=== PATIENT | male | born 1955 | race African-American/Black ===

== ENCOUNTER 2017-11-14 16:59 | Emergency (ER) | payer BC | END 2017-11-14 19:55 | disposition home or self-care (01) | LOC: ERS 16:59 | DX: M54.12 Radiculopathy, cervical region (principal); I11.0 Hypertensive heart disease with heart failure; I50.9 Heart failure, unspecified; E11.9 Type 2 diabetes mellitus without complications; E03.9 Hypothyroidism, unspecified; E78.5 Hyperlipidemia, unspecified; F17.210 Nicotine dependence, cigarettes, uncomplicated; Z86.73 Personal history of transient ischemic attack (TIA), and cerebral infarction without residual deficits; Z79.84 Long term (current) use of oral hypoglycemic drugs; Z79.82 Long term (current) use of aspirin; Z79.899 Other long term (current) drug therapy | CPT/HCPCS: 99283 ==

== ENCOUNTER 2019-08-17 16:48 | Observation (INO) | payer BC, SELFPAY ==
--- NOTE | 2019-08-17 17:12 | RAD ---
EXAM: CHEST ONE VIEW HISTORY: Chest pain. COMPARISON: 02/12/2017 FINDINGS: The cardiac silhouette and pulmonary vasculature is within normal limits. The lungs are clear. The os seous structures are intact. No interval change from prior study. IMPRESSION: No acute cardiopulmonary process.
[2019-08-17 17:28] LABS: #Eosinphils 0.2 thou/uL (0.0-0.7); #Lymphocytes 2.8 thou/uL (1.20-3.40); #Monocytes 0.5 thou/uL (0.11-0.59); #Neutrophils 4.3 thou/uL (1.40-6.50); %Basophils 0.6 % (0.0-1.0); %Eosinophils 2.2 % (0.0-10.0); %Lymphocytes 35.9 % (21.0-51.0); %Monocytes 6.7 % (0.0-10.0); %Neutrophils 54.7 % (42.0-75.0); Hemoglobin 15.9 g/dL (14.0-18.0); Mean Corpuscular HGB CONC 32.8 g/dL (32.0-36.0); Mean Corpuscular Hemoglobin 28.6 pg (27.0-31.0); Mean Corpuscular Volume 87.2 fL (78.0-98.0); Mean Platelet Volume 7.3 fL (7.4-10.4); Platelet Count 255 thou/uL (130-400); RBC Distribution Width 12.3 % (11.5-14.5); Red Blood Cell (RBC) Count 5.56 mill/uL (4.70-6.10); White Blood Cell (WBC) Count 7.8 thou/uL (4.8-10.8)
[2019-08-17 17:58] LABS: ALT (SGPT) 43 U/L (8-55); AST (SGOT) 28 U/L (5-34); Albumin 4.3 g/dL (3.4-4.8); Alkaline Phosphatase 124 U/L (40-110); Anion Gap 16 mmol/L (10-20); BUN (Urea Nitrogen) 9 mg/dL (8.4-25.7); Bilirubin, Total 0.3 mg/dL (0.2-1.2); CK (CPK) 111 U/L (30-200); Calc. Creatinine Clearance 0 mL/min (70-130); Calcium 9.8 mg/dL (7.8-10.44); Carbon Dioxide 25 mmol/L (23-31); Chloride 104 mmol/L (98-107); Estimated GFR-MDRD Greater than 90; Globulin 3.3 g/dL (2.4-3.5); Glucose 190 mg/dL (80-115); Potassium 3.8 mmol/L (3.5-5.1); Protein, Total 7.6 g/dL (5.8-8.1); Sodium 141 mmol/L (136-145)
[2019-08-17] MEDS ORDERED: Aspirin Chewable 81 MG TAB ONE (19:37)
[2019-08-17] MEDS ORDERED: Nitroglycerin 0.4 MG TAB 1 EACH ONE (19:41)
[2019-08-17] MEDS ORDERED: Ondansetron PF 4 MG/2 ML Vial ONE (20:32)
[2019-08-17] MEDS ORDERED: Morphine 4 MG/ML VIAL ONE (20:32)
[2019-08-17 20:42] LABS: Troponin I Less than 0.010 ng/mL (< 0.028)
[2019-08-17 22:40] LABS: Troponin I Less than 0.010 ng/mL (< 0.028)
[2019-08-17 23:27] VITALS: BMI 32.3
[2019-08-17] MEDS ORDERED: Ondansetron ODT 4 MG TAB SL PRN (23:32)
[2019-08-17] MEDS ORDERED: Ondansetron PF 4 MG/2 ML Vial IVP PRN (23:32)
[2019-08-17] MEDS ORDERED: Acetaminophen 325 MG TAB PO PRN (23:32)
[2019-08-17] MEDS ORDERED: HYDROcodone/Acetaminophen 5/325 mg Tablet PO PRN ×2 (23:32)
[2019-08-18] MEDS ORDERED: Dextrose 5% in Water 1,000 ML IV PRN (08:47)
[2019-08-18] MEDS ORDERED: Dextrose 50% Abboject 50 ML SYRINGE SLOW IVP PRN (08:47)
[2019-08-18] MEDS ORDERED: HumaLOG 300 UNITS/3 ML VIAL SC PRN (08:47)
[2019-08-18] MEDS: Enoxaparin Sodium 40 MG/0.4 ML SYRINGE SC SCH (10:21)
[2019-08-18] MEDS ORDERED: PROVENTIL INHALER 6.7 G (200 INHALATIONS) INH PRN (10:30)
--- NOTE | 2019-08-18 13:30 | HP ---
CHIEF COMPLAINT: Chest pain. 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 No nausea, no vomiting, no clammy skin, no sweating. The pain came back later on, but it was not as pronounced and severe. The first one was rated at 10 and the second one was less severe. The patient decided to come to the emergency room for further evaluation. While in the emergency room, he received morphine and nitroglycerin x3 and aspirin and chest pressure which was residual from the pain he had earlier completely went away and he is pain-free at this time. He had cardiac catheterization done by Dr. Ridley four years ago, which was negative, but he is high risk. He has some significant risk factors like diabetes mellitus. He is a smoker, looks like he has some peripheral vascular disease. So the patient is admitted to the hospital for further evaluation of his chest pain. PAST MEDICAL HISTORY: Positive for; 1. Hypothyroidism. 2. Hyperlipidemia. 3. Type 2 diabetes mellitus. 4. Hypertension. 5. History of cerebrovascular accident with some left-sided residual weakness which completely resolved. PAST SURGICAL HISTORY: 1. Cholecystectomy. 2. Hernia repair. SOCIAL HISTORY: He smokes a pack per day. He does not drink much alcohol. He does not use any illicit drugs. FAMILY HISTORY: His father is still alive. He has multiple medical problems. Mother . She had diabetes complications and she was 77 when she passed. Also, she had heart disease. ALLERGIES: GADOLINIUM, IODINE CONTRAST, AND IODINE CONTAINING PRODUCTS. CURRENT MEDICATIONS: 1. Lisinopril 40 mg once a day. 2. Amlodipine 10 mg. 3. Metformin 500 mg twice a day. 4. Levothyroxine 112 mcg daily. 5. Aspirin 81 mg once a day. 6. Lasix 20 mg once a day. 7. Metoprolol tartrate 25 mg once a day. PRIMARY CARE PHYSICIAN: [facility]. Surrogate decision maker, the patient's father since he is not . REVIEW OF SYSTEMS: All 14 systems were reviewed and all these symptoms mentioned in HPI are positive, the rest are negative. PHYSICAL EXAMINATION: GENERAL: He is not in any distress during my visit. VITAL SIGNS: Blood pressure is 143/70, pulse is 73, temperature is 97.7, respirations 18, and O2 saturation is 100% on room air. HEENT: His head is atraumatic and normocephalic. Eyes are PERRLA. Sclerae are nonicteric. His conjunctiva is pinkish. There is some redness in the lower parts of his sclerae. Oral mucosa is dry. NECK: Supple. LUNGS: Clear. HEART: S1, S2 normal. No S3. No S4. No any murmur. ABDOMEN: Soft, nontender. Mildly distended, obese. Possible hernia in the upper parts of the abdomen. He has several scars from previous surgeries on his abdomen and hernia repairs. EXTREMITIES: No clubbing, cyanosis, or edema. His pulses on both tibialis posterior and dorsalis pedis arteries are somewhat diminished. NEUROLOGIC: He is alert and oriented x4. There is no any motor deficits. LABORATORY DATA: Labs showed a white count of 7.8, hemoglobin 15.9, hematocrit 48.5, platelet count is 255. Chemistry showed normal electrolytes, normal kidney function, glucose 190, and alkaline phosphatase 124. Two sets of troponin I within normal limits and lipase is 117. Electrocardiogram personally reviewed by me showed normal sinus rhythm with possible left atrial enlargement and left axis deviation with Q-waves in precordial leads and Q-waves in lead III and aVF. The chest x-ray personally reviewed by me did not show any acute cardiopulmonary disease. IMPRESSION: 1. Acute chest pain, to rule out acute coronary syndrome. Two sets of cardiac enzymes within normal limits. An electrocardiogram showed some abnormalities, but no signs of acute ischemia. The fact that he had cardiac catheterization done four years ago makes this less likely that this is cardiac chest pain, but with his smoking history and diabetes, we will do echocardiogram and stress test on him. We will repeat his lipase level since it was slightly above the normal range, but he does not complain about any abdominal discomfort. 2. Diabetes mellitus relatively well controlled. Apparently, his last hemoglobin A1c was less than 7. 3. Hypertension. 4. History of cerebrovascular accident with left-sided weakness which resolved. 5. Hypothyroidism. 6. Hyperlipidemia. 7. Questionable diagnosis of congestive heart failure found on ED records, but echocardiogram which was done 4 years ago and cardiac catheterization did not confirm that. PLAN: Plan is to admit him for observation. Condition is fair. Activity is bedrest and bathroom privileges. We will stress him with exercise, nuclear medicine stress test and do echocardiogram and we will continue his home medications. We will do DVT prophylaxis. He received his aspirin in the emergency room and he does not require any nitroglycerin at this point. Job ID: [id number]
--- NOTE | 2019-08-18 15:31 | NM ---
EXAM: Nuclear medicine cardiac perfusion examination with ejection fraction HISTORY: Chest pain TECHNIQUE: Rest images: 9.0 mCi technetium 99m sestamibi Stress images: 32.5 mCi of technetium 9M sestamibi; treadmill stress test using a Jeffry protocol. The patient achieved 85% maximum predicted heart rate. COMPARISON: None FINDINGS: Tomographic images: No fixed or reversible perfusion defects. Gated images: Normal wall motion and ejection fraction of 64%. EDV: 94 mL LHR: 0.3 TID: 0.8 IMPRESSION: No evidence of ischemia
[2019-08-18] MEDS: metFORMIN 500 MG TAB PO SCH (20:08)
[2019-08-19] MEDS ORDERED: Levothyroxine Sodium 112 MCG TAB PO SCH (06:00)
[2019-08-19] MEDS: metFORMIN 500 MG TAB PO SCH (08:23)
[2019-08-19] MEDS: Enoxaparin Sodium 40 MG/0.4 ML SYRINGE SC SCH (08:23)
[2019-08-19 08:35] VITALS: TEMP 97.7
[2019-08-19] MEDS ORDERED: Aspirin Chewable 81 MG TAB PO SCH (09:00)
[2019-08-19] MEDS ORDERED: Furosemide 20 MG TAB PO SCH (09:00)
[2019-08-19] MEDS ORDERED: Amlodipine 5 MG TAB PO SCH (09:00)
[2019-08-19] MEDS ORDERED: Lisinopril 20 MG TAB PO SCH (09:00)
[2019-08-19 11:52] VITALS: BP 142/78
--- NOTE | 2019-08-20 03:17 | DIS ---
DATE OF ADMISSION: 08/17/2019 DATE OF DISCHARGE: 08/19/2019 FINAL DIAGNOSES AT THE TIME OF DISCHARGE: 1. Chest pain, acute coronary syndrome was ruled out with EKG, cardiac enzymes, and stress test. 2. Diabetes mellitus type 2. 3. Hypertension. 4. History of cerebrovascular accident with left-sided weakness, which resolved. 5. Hypothyroidism. 6. Hyperlipidemia. 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 It was associated with some shortness of breath. There was no nausea, vomiting, or clammy skin. No sweating during the episode. It got better, then it came back again. The patient decided to come to the emergency room for further evaluation. He had morphine and nitroglycerin x3 and aspirin in the emergency room, which completely healed his pain. The patient got admitted for further evaluation. His labs in the ER showed white count of 7.8, hemoglobin 15.9, hematocrit 48.5, platelet count 255. Glucose 190, alkaline phosphatase 124. Two sets of troponin I within normal limits. Lipase was 117. Electrocardiogram showed normal sinus rhythm with possible left atrial enlargement and left axial deviation with Q-waves in precordial leads and Q-waves in lead III and aVF. The chest x-ray showed no acute cardiopulmonary disease. The patient was admitted to observation. He underwent a nuclear medicine stress test, which came back normal. His LVEF was estimated on this test at 64%. There was no fixed or reversible perfusion defects. Also, he underwent echocardiogram, which showed LVEF estimated at 55% to 60%, and there was borderline concentric left ventricular hypertrophy along with possible mild diastolic dysfunction along with mild mitral regurgitation and [id number] aortic regurgitation. The pulmonary pressure was normal. The patient is doing well. His blood pressure is 142/78, pulse is 84, temperature is 97.7, respiratory rate is 18, O2 saturation 99% on room air. He is seen and examined before his discharge. He is discharged home with recommendation to stay on 2000-calories ADA diet. ACTIVITIES: As tolerated. FOLLOWUP: With his primary care physician, Dr. Ríos at [facility] in a week. MEDICATIONS: At the time of discharge, 1. Metformin 500 mg twice a day. 2. Metoprolol 50 mg twice a day. 3. Lisinopril 40 mg daily. 4. Levothyroxine 112 mcg daily. 5. Furosemide 20 mg daily. 6. Aspirin 81 mg daily. 7. Amlodipine 10 mg daily. 8. Albuterol sulfate two puffs q.6 hours p.r.n. as needed. Job ID: [id number]
== END 2019-08-19 14:45 | disposition home or self-care (01) ==
LOC: ERS 16:48 → 2SW 23:21
PROVIDERS: ADMIT Internal Medicine; ATTEND Emergency Medicine
DX: R07.2 Precordial pain (principal); E03.9 Hypothyroidism, unspecified; E78.5 Hyperlipidemia, unspecified; E11.9 Type 2 diabetes mellitus without complications; F17.210 Nicotine dependence, cigarettes, uncomplicated; G89.29 Other chronic pain; M54.9 Dorsalgia, unspecified; I11.0 Hypertensive heart disease with heart failure; I50.9 Heart failure, unspecified; Z86.73 Personal history of transient ischemic attack (TIA), and cerebral infarction without residual deficits; Z79.82 Long term (current) use of aspirin; Z79.84 Long term (current) use of oral hypoglycemic drugs; Z79.899 Other long term (current) drug therapy; Z91.041 Radiographic dye allergy status
CPT/HCPCS: 36415; 36416; 71045; 78452; 80053; 82550; 83690; 83880; 84484; 85025; 93005; 93017; 93306; 96372; 96374; 96375; A9500; G0378; J1650; J2270; J2405

== ENCOUNTER 2020-05-12 05:19 | Emergency (ER) | payer SELFPAY ==
[2020-05-12] MEDS ORDERED: Lidocaine 1% w/Epinephrine 1:100K 20 ML VIAL ONE (05:48)
--- NOTE | 2020-05-12 07:32 | RAD ---
Exam:3 views right foot HISTORY: Pain. Injury. Patient stepped on piece of glass. COMPARISON: None FINDINGS: Lisfranc alignment is maintained. Joint spaces are preserved. No fracture, cortical irregul arity or periosteal reaction. Minimal hypertrophy at the calcaneus along the Achilles tendon insertion site and the insertion site of the plantar aponeurosis. IMPRESSION: No fracture. No radiopaque foreign body.
== END 2020-05-12 06:24 | disposition home or self-care (01) ==
LOC: ERS 05:19
DX: S90.851A Superficial foreign body, right foot, initial encounter (principal); I11.0 Hypertensive heart disease with heart failure; I50.9 Heart failure, unspecified; E03.9 Hypothyroidism, unspecified; E78.5 Hyperlipidemia, unspecified; E78.00 Pure hypercholesterolemia, unspecified; F17.210 Nicotine dependence, cigarettes, uncomplicated; E11.40 Type 2 diabetes mellitus with diabetic neuropathy, unspecified; Z79.899 Other long term (current) drug therapy; Z79.84 Long term (current) use of oral hypoglycemic drugs; Z86.73 Personal history of transient ischemic attack (TIA), and cerebral infarction without residual deficits; W25.XXXA Contact with sharp glass, initial encounter
CPT/HCPCS: 10120

== ENCOUNTER 2021-01-15 16:59 | Emergency (ER) | payer SELFPAY ==
[2021-01-15 17:54] LABS: #Basophils 0.1 thou/uL (0.0-0.2); #Eosinphils 0.2 thou/uL (0.0-0.7); #Lymphocytes 4.6 thou/uL (1.20-3.40); #Monocytes 0.8 thou/uL (0.11-0.59); #Neutrophils 7.2 thou/uL (1.40-6.50); %Basophils 0.7 % (0.0-1.0); %Eosinophils 1.3 % (0.0-10.0); %Lymphocytes 35.6 % (21.0-51.0); %Monocytes 6.5 % (0.0-10.0); %Neutrophils 55.9 % (42.0-75.0); Hemoglobin 16.1 g/dL (14.0-18.0); Mean Corpuscular Hemoglobin 29.4 pg (27.0-31.0); Mean Corpuscular Volume 89.2 fL (78.0-98.0); Mean Platelet Volume 7.6 fL (7.4-10.4); Platelet Count 278 thou/uL (130-400); RBC Distribution Width 12.8 % (11.5-14.5); Red Blood Cell (RBC) Count 5.47 mill/uL (4.70-6.10)
[2021-01-15 18:02] LABS: Bilirubin Negative (Negative); Blood, Urine Negative (Negative); Clarity Clear (Clear); Glucose, Urine (Dipstick) Greater than 1000 mg/dL (Negative); Ketone, Urine Negative (Negative); Leukocyte 500 Leu/uL (Negative); Nitrite Negative (Negative); Protein, Urine (Dipstick) Negative (Neg-Trace); RBC/HPF None Seen HPF (0-3); Specific Gravity, Urine 1.042 (1.002-1.036); Squamous Epithelial 0-3 HPF (0-3); Urobilinogen Normal mg/dL (Less than 2); WBC/HPF 21-50 HPF (0-3); pH, Urine 5.5 (5.0-9.0)
[2021-01-15 18:17] LABS: ALT (SGPT) 40 U/L (8-55); AST (SGOT) 25 U/L (5-34); Albumin 4.3 g/dL (3.4-4.8); Alkaline Phosphatase 109 U/L (40-110); Anion Gap 14 mmol/L (10-20); BUN (Urea Nitrogen) 12 mg/dL (8.4-25.7); Bilirubin, Total 0.4 mg/dL (0.2-1.2); Calc. Creatinine Clearance 0 mL/min (70-130); Calcium 9.7 mg/dL (7.8-10.44); Carbon Dioxide 24 mmol/L (23-31); Chloride 105 mmol/L (98-107); Globulin 3.3 g/dL (2.4-3.5); Glucose 122 mg/dL (80-115); Lipase 168 U/L (8-78); Potassium 4.5 mmol/L (3.5-5.1); Protein, Total 7.6 g/dL (5.8-8.1); Sodium 138 mmol/L (136-145)
[2021-01-15 18:19] LABS: Bacteria/HPF 2+ HPF (None Seen); Yeast-Budding 1+ HPF (None Seen); Yeast-Hyphae Rare HPF (None Seen)
== END 2021-01-15 20:22 | disposition home or self-care (01) ==
LOC: ERS 16:59
DX: N39.0 Urinary tract infection, site not specified (principal); I11.0 Hypertensive heart disease with heart failure; I50.9 Heart failure, unspecified; E03.9 Hypothyroidism, unspecified; E78.5 Hyperlipidemia, unspecified; E78.00 Pure hypercholesterolemia, unspecified; E11.40 Type 2 diabetes mellitus with diabetic neuropathy, unspecified; F17.210 Nicotine dependence, cigarettes, uncomplicated; Z86.73 Personal history of transient ischemic attack (TIA), and cerebral infarction without residual deficits; Z79.84 Long term (current) use of oral hypoglycemic drugs; Z79.899 Other long term (current) drug therapy
CPT/HCPCS: 36415; 74176; 76870; 80053; 81003; 81015; 83690; 85025; 87086; 93976

== ENCOUNTER 2024-09-17 11:19 | Outpatient (CLI) | payer OTHER ==
[2024-09-17 13:35] LABS: #Basophils 0.03 10x3/uL (0.0-0.2); %Basophils 0.3 % (0.0-1.0); %Eosinophils 0.7 % (0.0-10.0); %Lymphocytes 29.7 % (21.0-51.0); %Neutrophils 60.7 % (42.0-75.0); Hematocrit 44.4 % (42.0-52.0); Hemoglobin 13.9 g/dL (14.0-18.0); Mean Corpuscular HGB CONC 31.3 g/dL (32.0-36.0); Mean Corpuscular Hemoglobin 27.5 pg (27.0-31.0); Mean Corpuscular Volume 87.7 fL (78.0-98.0); Mean Platelet Volume 9.7 fL (7.4-10.4); Platelet Count 255 10x3/uL (130-400); RBC Distribution Width 13.3 % (11.5-14.5); Red Blood Cell (RBC) Count 5.06 mill/uL (4.70-6.10)
[2024-09-17 13:54] LABS: Anion Gap 14 mmol/L (10-20); BUN (Urea Nitrogen) 14 mg/dL (8.4-25.7); Calc. Creatinine Clearance 0 mL/min (70-130); Calcium 9.5 mg/dL (7.8-10.44); Carbon Dioxide 24 mmol/L (23-31); Chloride 107 mmol/L (98-107); Estimated GFR 100; Glucose 100 mg/dL (80-115); Potassium 4.3 mmol/L (3.5-5.1); Sodium 141 mmol/L (136-145)
[2024-09-17 14:14] LABS: INR-International Normal Ratio 0.9; PTT 27.8 sec (22.9-36.1); Prothrombin Time 12.6 sec (12.0-14.7)
[2024-09-17 17:35] LABS: Bacteria/HPF None Seen HPF (None Seen); Bilirubin Negative (Negative); Blood, Urine Negative (Negative); Clarity Clear (Clear); Glucose, Urine (Dipstick) Normal (Negative); Ketone, Urine Negative (Negative); Leukocyte Negative Leu/uL (Negative); Nitrite Negative (Negative); Protein, Urine (Dipstick) 10 mg/dL (Neg-Trace); RBC/HPF 0-3 HPF (0-3); Specific Gravity, Urine 1.026 (1.002-1.036); Squamous Epithelial 0-3 HPF (0-3); WBC/HPF 0-3 HPF (0-3)
== END 2024-09-17 11:20 | disposition home or self-care (01) ==
LOC: LABBT 11:19
PROVIDERS: ATTEND Urology
DX: Z01.818 Encounter for other preprocedural examination (principal); N47.1 Phimosis
CPT/HCPCS: 71046; 80048; 81001; 85025; 85610; 85730; 87086; 93005; 93010

== ENCOUNTER 2025-05-07 07:43 | Outpatient (CLI) | payer OTHER, MEDICAID | END 2025-05-07 07:44 | disposition home or self-care (01) | LOC: ULT 07:43 | PROVIDERS: ATTEND Family Medicine | DX: Z12.2 Encounter for screening for malignant neoplasm of respiratory organs (principal); Z13.6 Encounter for screening for cardiovascular disorders; Z87.891 Personal history of nicotine dependence | CPT/HCPCS: 71271; 76706 ==